=== PATIENT | female | born 2000 | race Two or more races ===

== ENCOUNTER 2024-02-29 16:59 | Observation (INO) | payer MEDICAID, SELFPAY ==
[2024-02-29] VITALS (26 sets, daily range): PULSE 93–111; O2SAT 92–100; BMI 29.9
--- NOTE | 2024-02-29 17:02 | XR_ITS ---
Examination: Complete OB ultrasound greater than 14 weeks Date and time of exam: February 29, 2024 1841 hrs. Indications: Labor evaluation, onset nausea vomiting diarrhea beginning 2 days ago Findings: Viable intrauterine single fetus with single amniotic sac presentation cephalic spine anterior maternal left Cardiac motion 124 BPM Placenta anterior grade 2 Umbilical cord insertion 3 vessel seen Amniotic fluid index 9.6 cm Cervix 4.8 cm Right ovary 4.1 x 1.9 x 2.9 cm arterial flow Left ovary obscured by bowel gas. Composite estimated gestational age based on BPD, head circumference, abdominal circumference, femur length is 33 weeks 2 days Estimated weight 2172.9 g. Survey of intracranial anatomy, spinal anatomy, abdominal anatomy, four-chamber heart performed with no abnormalities identified. Impression: Viable intrauterine gestation cephalic presentation Estimated gestational age 33 weeks 2 days Estimated weight 2172.9 g.
[2024-02-29] MEDS: RINGERS LACTATED 1000 ML 1,000 ML 999 ML IV (17:10)
== END 2024-02-29 20:03 | disposition home or self-care (01) ==
PROVIDERS: Admitting Provider Advanced Practice Midwife; Visit Provider Advanced Practice Midwife
DX: O21.2 Late vomiting of pregnancy (principal); Z3A.33 33 weeks gestation of pregnancy
CPT/HCPCS: 59899; 76805; J7120

== ENCOUNTER 2024-04-18 14:17 | Outpatient (CLI) | payer MEDICAID, SELFPAY ==
--- NOTE | 2024-04-18 14:35 | XR_ITS ---
Examination: Complete OB ultrasound greater than 14 weeks Date and time of exam: April 18, 2024 1441 hours INDICATIONS: Post dates, unknown size and presentation Findings: Viable intrauterine single fetus with single amniotic sac presentation cephalic Cardiac motion 141 BPM Placenta anterior fundal grade 3 Umbilical cord insertion 3 vessel seen Amniotic fluid index 8.1 cm spine maternal left Cervix 3.6 cm Ovaries obscured by bowel gas. Composite estimated gestational age based on BPD, head circumference, abdominal circumference, femur length is 37 weeks 5 days Estimated weight 3324 g. Survey of intracranial anatomy, spinal anatomy, abdominal anatomy, four-chamber heart performed with no abnormalities identified. Impression: Viable intrauterine gestation cephalic presentation Amniotic fluid index 8.1 cm.
[2024-04-18 14:51] VITALS: BP 101/58; PULSE 111; RESP 16; TEMP 36.6
[2024-04-18 15:09] VITALS: BMI 30.5
[2024-04-18 15:38] VITALS: BP 101/58; PULSE 111
[2024-04-18 16:06] VITALS: BP 96/65; PULSE 99
== END 2024-04-18 16:20 | disposition home or self-care (01) ==
LOC: S4S1 14:19 → S4SX 14:20
PROVIDERS: Referring Provider Obstetrics & Gynecology; Visit Provider Obstetrics & Gynecology
DX: Z34.03 Encounter for supervision of normal first pregnancy, third trimester (principal); Z36.9 Encounter for antenatal screening, unspecified; Z3A.37 37 weeks gestation of pregnancy
CPT/HCPCS: 59025; 76805

== ENCOUNTER 2024-04-25 08:19 | Inpatient (IN) | payer MEDICAID, SELFPAY ==
[2024-04-25] VITALS (83 sets, daily range): BP systolic 102–130; BP diastolic 62–81; PULSE 84–121; RESP 16–18; TEMP 36.6–36.7; O2SAT 97–100; BMI 30.4
--- NOTE | 2024-04-25 09:09 | XR_ITS ---
Examination: Complete OB ultrasound greater than 14 weeks Date and time of exam: April 25, 2024 11:51 AM INDICATIONS: Labor induction today, unknown presentation Findings: Viable intrauterine single fetus with single amniotic sac presentation cephalic Cardiac motion 131 BPM Placenta anterior grade 3 Umbilical cord insertion seen Amniotic fluid index 0.3 cm Cervix 3.5 cm Ovaries obscured by bowel gas. Composite estimated gestational age based on BPD, head circumference, abdominal circumference, femur length is 36 weeks 4 days Estimated weight 3043 g. Survey of intracranial anatomy, spinal anatomy, abdominal anatomy, four-chamber heart performed with no abnormalities identified. Impression: Viable intrauterine gestation cephalic presentation.
[2024-04-25 10:18] LABS: Basophils # (Auto) 0.1 Thou/mm3 (0.0-0.2); Basophils % (Auto) 0 % (0-2.5); Eosinophils # (Auto) 0.1 Thou/mm3 (0.0-0.5); Eosinophils % (Auto) 1 % (0-10); Hematocrit 32.7 % (36.0-46.0); Hemoglobin 10.3 g/dL (12.0-16.0); Immature Granulocytes % (Auto) 0 % (0-0); Immature Granulocytes Auto 0.03 Thou/mm3 (0.00-0.00); Lymphocytes # (Auto) 2.4 Thou/mm3 (1.0-4.8); Lymphocytes % (Auto) 22 % (10-50); Mean Corpuscular HGB Conc 31.5 g/dl (31.0-37.0); Mean Corpuscular Hemoglobin 22.2 pg (25.0-35.0); Mean Corpuscular Volume 71 fL (80-100); Monocytes # (Auto) 0.6 Thou/mm3 (0.0-0.8); Monocytes % (Auto) 5 % (0-12); Neutrophils # (Auto) 8.1 Thou/mm3 (1.8-7.7); Neutrophils % (Auto) 72 % (37-80); Nucleated Red Blood Cell % 0 /100 WBC (0); Platelet Count 375 Thou/mm3 (140-440); RDW Standard Deviation 41.4 fL (36.4-46.3); Red Blood Count 4.63 Miln/mm3 (4.00-5.20); White Blood Count 11.3 Thou/mm3 (3.6-11.0)
[2024-04-25 10:56] LABS: Syphilis Nonreactive (Nonreactive)
--- NOTE | 2024-04-25 13:14 | ESHP_ITS ---
Documentation for date of: 04/25/24 OB Labor/Induct. HPI History of Present Illness Chief complaint: labor : 1 Para: 0 Term pregnancies: 0 pregnancies: 0 Living children: 0 History of Abortions: Spontaneous and Elective: 0 History of Vaginal deliveries: 0 History of sections: No History of : No Date of last menstrual period: 07/12/23 YAYA: 04/18/24 Gestational Age (weeks): 41 Gestational Age (days): 1 Gestational age based on last menstrual period: 41 Indication for induction: other (post dates) History of present illness: 24-year-old 1 para 0 admit for induction of labor. Last. 07/12/2023. Estimated due date April 17, 2024. Patient is patient at [facility] she was a transfer of care from Dr. Arriola's office. At 24 weeks. Denies social habits. Denies surgery. Denies chronic illness. History of chlamydia with the elevated test of cure was negative. Partner was treated. A+, antibody screen negative, RPR nonreactive, rubella immune, hepatitis B negative, HIV negative, hep C negative, hep B negative, normal 1 hour. And NIPT was negative and carrier screen negative as well. GBS positive History of Present Dating criteria: LMP confirmed by 2nd trimester US Adequate Care: Yes Ultrasounds: normal 1st trimester US and normal mid trimester US Obstetrical complications: none Medical complications: none Labs Labs: Positive: Group Beta Strep and Negative: Hepatitis B, HIV, Chlamydia and Gonorrhea Review of Systems Review of Systems Systems Reviewed: All systems reviewed, normal except as documented Past Medical History Surgical History SURGICAL: Negative Section Meds Home Medications and Allergies Home Medications ?Medication ?Instructions ?Recorded ?Confirmed ?Type vitamin-ferrous sulfate 1 tab PO QDAY 4 04/25/24 History 27 mg iron-folic acid 0.8 mg tablet Allergies Allergy/AdvReac Type Severity Reaction Status Date / Time No Known Allergies Allergy Verified 04/25/24 08:48 OB Exam Physical Exam Vital signs: Temp Pulse Resp BP Pulse Ox 98.1 F 92 16 119/75 99 04/25/24 08:26 04/25/24 11:43 04/25/24 08:26 04/25/24 11:43 04/25/24 13:11 Narrative: Alert and oriented. Normal heart rate and rhythm. Lungs clear no wheezes. Gravid abdomen. Gynecoid pelvis. Estimated weight 7 pounds 9 ounces. Vaginal exam on admission was long closed posterior high. Vertex by ultrasound. heart rate category 1 with accelerations and moderate variability occasional contraction OB Results Labs 04/25/24 08:40 Labs: Short CBC 04/25/24 Range/Units 08:40 WBC 11.3 H (3.6-11.0) Thou/mm3 Hgb 10.3 L (12.0-16.0) g/dL Hct 32.7 L (36.0-46.0) % Plt Count 375 (140-440) Thou/mm3 Impressions Impression: induction OB Assessment & Plan Assessment and Plan (1) Normal labor and delivery: Status: Acute Additional Plan Induction method: per misoprostol protocol Plan: induction, anticipate NVD, GBS prophylaxis tx and consult MD espinoza
[2024-04-25] MEDS: DINOPROSTONE 10 MG VAG.SUPP VAGINAL (16:54)
[2024-04-25] MEDS: RINGERS LACTATED 1000 ML 1,000 ML 125 ML IV (18:34)
[2024-04-25] MEDS: MEPERIDINE INJ 50 MG/ML VIAL IVP (23:12)
[2024-04-25] MEDS: PROMETHAZINE INJ 25 MG/ML VIAL 12.5 MG IM (23:12)
[2024-04-26] VITALS (208 sets, daily range): BP systolic 69–135; BP diastolic 4–85; PULSE 69–148; RESP 15–23; TEMP 36.8–37.1; O2SAT 78–100
[2024-04-26] MEDS: MISOPROSTOL 50 mCg TABLET PO (11:22)
[2024-04-26] MEDS: RINGERS LACTATED 1000 ML 1,000 ML 125 ML IV (16:03)
--- NOTE | 2024-04-26 17:12 | PD.LDPN ---
Documentation for date of: 04/26/24 OB Labor Progress Note Pain Control Pain control: tolerating well and epidural Pelvic Exam Dilation (cm): 3-4 Effacement (%): 70 station: -2 Amniotic membrane status: Ruptured Comments: IUPC placed Contractions Monitor mode: Internal Contraction frequency: q 5-7 min Contraction intensity: Mild Status status: Category l Assessment and Plan Assessment: induction ongoing Plan OB labor note: begin Pitocin augmentation Comments: IUPC placed clear fluid noted patient on ampicillin for positive GBBS. Status post Cervidil x 1 at 338 and Cytotec at 1123 contractions have now spaced will start Pitocin augmentation. Patient resting comfortably with epidural
[2024-04-26] MEDS: OXYTOCIN in NS 30 units 30 UNIT/500 ML BAG IV (17:28)
[2024-04-26] MEDS: SODIUM CHLORIDE 0.9% 1000 ML 1,000 ML 125 ML IV (19:32)
[2024-04-26] MEDS: Ampicillin Inj 2,000 MG in SODIUM CHLORIDE 0.9% (P) 100 ML 200 MG IV (19:32)
[2024-04-26] MEDS: ONDANSETRON INJ 2 MG/ML INJ 2 ML 4 MG IV (21:01)
[2024-04-26] MEDS: AZITHROMYCIN 250 MG TABLET 500 MG PO (21:19)
[2024-04-26] MEDS: CITRIC ACID/SODIUM CITR 15 ML UDC (BICITRA) 30 ML PO (21:20)
[2024-04-26] MEDS: FAMOTIDINE INJ 10 MG/ML VIAL 2 ML 20 MG IV (21:21)
[2024-04-26] MEDS: ceFAZolin/D5W 2 GM IV 2 GM/100 ML BAG IV (21:23)
--- NOTE | 2024-04-26 22:50 | ESOP_ITS ---
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 Intrauterine at 41-2/7 weeks 2. Arrest of dilation at 3 to 4 cm Post-Op diagnosis: Same Procedure description: The patient is a 24-year-old G1, P0 admitted by Shae Dickey 04/25/24 for a scheduled induction of labor at 41 1/7 weeks for post due dates. The patient had Cervidil placed x 1 and Cytotec placed. She had an amniotomy performed. The patient failed to make progress past 3 to 4 cm for greater than 6 hours and a primary was called. After obtaining informed consent, the patient was brought back to the operating room and her epidural catheter was removed. Spinal anesthesia was then performed. The patient was then prepped and draped in the dorsal supine position with a leftward tilt in a normal sterile fashion. A Antoine catheter had been inserted during the patient's labor. A Pfannenstiel skin incision was made with the scalpel and carried down to the underlying fasc ia. The fascia was incised in the midline with the scalpel and the fascial incision extended laterally using Villasenor scissors. The superior aspect of the fascia was grasped with Sly clamps and the underlying rectus muscles dissected off using blunt and sharp dissection. This was repeated in the inferior aspect of the incision. The rectus muscles were in the midline the peritoneum was picked up and entered sharply with Metzenbaums. Thiis was extended superiorly and inferiorly with good visualization of the bladder. The bladder blade was inserted and the uterus was incised in a low transverse fashion above the bladder reflection using a scalpel. The uterine incision was extended laterally using blunt dissection with the surgeon's fingers. The bag of putnam were ruptured and clear fluid was noted.The bladder blade was removed and the was delivered atraumatically.The cord was clamped and cut and the infant was handed off to the waiting pediatric staff. Cord blood was collected Cord gases were saved. The placenta was then manually removed and handed off the operating field. The uterus was exteriorized and cleared of all clots and debris. The uterine incision was repaired using 1-0 Monocryl in a running locked fashion. Excellent hemostasis was noted. The uterus was returned to the patient's abdominal cavity and copious irrigation carried out with warm normal saline. The uterine incision was reexamined and noted to be hemostatic. After ensuring the rectus muscles were hemostatic, these were reapproximated using a running suture of 1-0 Monocryl. The fascia was closed with 0 Vicryl in a running fashion. The subcutaneous tissues were irrigated and found to be hemostatic. These were reapproximated using a running suture of 3-0 plain. The skin was closed with a subcuticular suture of 4-0 Monocryl. The patient tolerated the procedure well, sponge lap and needle counts were correct x 2. The patient went to the recovery area awake and in stable condition. Fluid amount (mL): 1,000 Urine output (mL): 150 Specimen: none Implants: none Estimated blood loss (ml): 300 Findings: Liveborn female in the OT presentation with a loose nuchal cord x 1 and a body cord x 1 no meconium. Apgars were 8 and 9 weight was 3,305gm. Tubes uterus and ovaries were grossly normal. The placenta was spontaneous and grossly normal with a normal cord insertion and a three-vessel cord. Complications: none Surgical staff Operation Date: 04/26/24 22:00 <No data on this case meets the specified criteria> Diagnosis Discharge Diagnosis (1) Post-dates : Status: Acute (2) delivery delivered: Status: Acute Problem List Completed Was Problem List Reviewed/Reconciled?: Yes (1) Post-dates Qualifiers: Post-term type: 40-42 weeks gestation Qualified Code(s): O48.0 - Post-term
[2024-04-26] MEDS: ACETAMINOPHEN IVPB 1,000 MG/100 ML VIAL 250 MG IV (23:12)
[2024-04-26] MEDS: OXYTOCIN in NS 20 units 20 UNIT/1,000 ML BAG 125 UNIT IV (23:13)
[2024-04-27] VITALS (8 sets, daily range): BP systolic 97–113; BP diastolic 59–71; PULSE 84–106; RESP 15–19; TEMP 36.5–36.7; O2SAT 96–100
[2024-04-27] MEDS: KETOROLAC INJ 30 MG/ML VIAL IVP ×3 (06:10→18:05)
[2024-04-27] MEDS: ACETAMINOPHEN IVPB 1,000 MG/100 ML VIAL 250 MG IV ×2 (06:12→16:18)
[2024-04-27] MEDS: PRENATAL VITAMIN/FE FUM/FA TABLET 1 TAB PO (08:32)
--- NOTE | 2024-04-27 09:15 | PD.LDPPPRG ---
Subjective Subjective Interval history: Patient doing well overall. Pain is controlled. She stood at bedside once, hasn't really ambulated yet- didn't have lightheadedness. Marvin in place draining clear yellow urine. Tolerating regular diet without nausea/vomiting. No fevers/chills, no CP/SOB. Exam Vital Signs Temp Pulse Resp BP Pulse Ox O2 Del Method 98.1 F 90 19 97/60 97 Room Air 04/27/24 08:00 04/27/24 08:00 04/27/24 08:00 04/27/24 08:00 04/27/24 08:00 04/27/24 08:00 Narrative Exam General: well developed, well nourished, no acute distress, conversant Cardiac: normal heart rate Lungs: breathing without distress Abdomen: soft, post-gravid, non-tender, no rebound or guarding, pfannenstiel incision covered by dry/clean/intact pressure dressing. No strike-through. Fundus firm at u-2cm. Extremities: no pain with palpation of calves, trace edema of BLE Objective Labs 04/25/24 08:40 Assessment & Plan Problem List (1) delivery delivered: Status: Acute Assessment and plan: Denice is a 24yo [id number] s/p uncomplicated PLTCS for arrest of dilation when undergoing IOL for post-dates, doing well on POD 1. Vitals wnl, benign exam. Hemodynamically stable with no evidence of infection. Plan: -Continue routine /post-op care -AM CBC ordered -Remove marvin this morning with 6hr due to void -Regular diet -Toradol for 24hr then motrin 800mg PO Q8hr, norco 5/325mg PO Q6hr prn pain -Encourage ambulation and use of IS -Anticipate discharge home tomorrow if meeting all milestones (2) Post-dates : Status: Acute Time Spent With Patient Time: Total time spent is greater than 50% in coordination of care (as documented) at patient's floor/unit and/or counseling patient:
[2024-04-27] MEDS: RINGERS LACTATED 1000 ML 1,000 ML 125 ML IV (09:18)
[2024-04-27 10:13] LABS: Basophils # (Auto) 0.1 Thou/mm3 (0.0-0.2); Basophils % (Auto) 0 % (0-2.5); Eosinophils % (Auto) 0 % (0-10); Hematocrit 25.8 % (36.0-46.0); Immature Granulocytes % (Auto) 1 % (0-0); Lymphocytes # (Auto) 2.5 Thou/mm3 (1.0-4.8); Lymphocytes % (Auto) 11 % (10-50); Mean Corpuscular Hemoglobin 21.8 pg (25.0-35.0); Mean Corpuscular Volume 70 fL (80-100); Monocytes # (Auto) 0.8 Thou/mm3 (0.0-0.8); Monocytes % (Auto) 4 % (0-12); Neutrophils # (Auto) 18.6 Thou/mm3 (1.8-7.7); Neutrophils % (Auto) 84 % (37-80); Nucleated Red Blood Cell % 0 /100 WBC (0); Platelet Count 264 Thou/mm3 (140-440); RDW Standard Deviation 42.1 fL (36.4-46.3); Red Blood Count 3.67 Miln/mm3 (4.00-5.20); White Blood Count 22.2 Thou/mm3 (3.6-11.0)
--- NOTE | 2024-04-27 11:02 | PC.NURSE ---
MD called and updated with cbc results, no new orders.
[2024-04-27] MEDS: IBUPROFEN TAB 400 MG TABLET 800 MG PO (21:38)
[2024-04-27] MEDS: ACETAMINOPHEN 325 MG TABLET 650 MG PO (22:03)
[2024-04-28 04:00] VITALS: BP 113/75; PULSE 86; RESP 16; TEMP 36.7; O2SAT 97
[2024-04-28] MEDS: ACETAMINOPHEN 325 MG TABLET 650 MG PO ×2 (06:07→12:04)
[2024-04-28] MEDS: IBUPROFEN TAB 400 MG TABLET 800 MG PO (06:09)
[2024-04-28 08:00] VITALS: BP 104/67; PULSE 88; RESP 17; TEMP 36.7; O2SAT 97
[2024-04-28] MEDS: PRENATAL VITAMIN/FE FUM/FA TABLET 1 TAB PO (08:39)
--- NOTE | 2024-04-28 11:54 | ESDS_ITS ---
DS: Providers Provider Date of admission: 04/25/24 08:19 Primary care physician: Physician No Primary/Family Admitting Provider: Freddy Alvarenga MD Attending Provider on Admission: Shae Dickey CNM Attending Provider on DC: Arabella Thakkar MD Discharging Provider: Arabella Thakkar MD DS: Diagnosis Discharge Diagnosis (1) delivery delivered: Status: Acute (2) Post-dates : Status: Acute (3) Anemia, : Status: Acute Problem List Completed Was Problem List Reviewed/Reconciled?: Yes Summary/Hosp Course Brief History: Denice is a 24yo [id number] s/p uncomplicated PLTCS for arrest of dilation when undergoing IOL for post-dates, doing well on POD 2. Vitals wnl, benign exam. Hemodynamically stable with no evidence of infection. She has had a benign post- operative course and is meeting all milestones. Post-op Hgb 8, Rx iron to pharmacy. Peripartum Data Procedures: Procedures Operation Date: 04/26/24 22:00 Actual Procedure Side Surgeon p in OB Kenia Eid MD Status at Discharge Functional status at discharge: independent ambulation Overall status at discharge: patient is back to baseline Time Spent with Patient Time attestation: Total time spent providing and/or coordinating discharge services: Exam Vital Signs Temp Pulse Resp BP Pulse Ox O2 Del Method 98.1 F 88 17 104/67 97 Room Air 04/28/24 08:00 04/28/24 08:00 04/28/24 08:00 04/28/24 08:00 04/28/24 08:00 04/28/24 08:00 Narrative Exam General: well developed, well nourished, no acute distress, conversant Cardiac: normal heart rate Lungs: breathing without distress Abdomen: soft, post-gravid, non-tender, no rebound or guarding, pfannenstiel incision covered by dry/clean/intact prineo bandage. Incision well reapproximated. No erythema, drainage or induration. Fundus firm at u-2cm. Extremities: no pain with palpation of calves, trace edema of BLE Discharge Plan Plan Patient Disposition: HOME (Self Care) Patient condition on transfer: Stable Prescriptions/Referrals Prescriptions/Med Rec: New ibuprofen 800 mg tablet 800 mg PO Q8HR 10 Days Qty: 30 0RF polyethylene glycol 3350 17 gram powder in packet 17 g PO QDAY Qty: 14 0RF hydrocodone-acetaminophen 5-325 mg tablet 1 tab PO Q6H MDD 4 tablets PRN (Reason: pain) Qty: 12 0RF ferrous sulfate 325 mg (65 mg iron) tablet 325 mg PO QDAY Qty: 30 0RF Continued vit-ferrous sulfat-FA 27 mg iron- 0.8 mg Tablet 1 tab PO QDAY Referrals: No Primary/Family,Physician [Primary Care Provider] - Patient/Caregiver Discharge Instructions Discharge Activity: activity as tolerated and other Other Discharge Activity Instructions:: Vaginal rest and no heavy lifting more than 10 pounds for 6 weeks[address] No [address] while taking narcotic. Do not submerge incision, keep dressing clean and dry. Other Discharge Diet Instructions: Regular Education Materials: C Section Dc Print Language: Indonesian Activity Restrictions/Additional Instructions: follow up for incision check with OBGYN in 1 week, call for appointment Stand Alone Forms: [employer] Info., Patient Portal Info Letter Discharge Order Discharge Orders: Discharge (Routine); Ordered 04/28/24 Ordered By: Arabella Thakkar Planned Discharge Date 04/28/24 (2) Post-dates Qualifiers: Post-term type: 40-42 weeks gestation Qualified Code(s): O48.0 - Post-term
== END 2024-04-28 13:15 | disposition home or self-care (01) | DRG 540 ==
LOC: S4SX 04-26 21:04 → S4NX 04-26 21:27
PROVIDERS: Obstetrics & Gynecology; Admitting Provider Student in an Organized Health Care Education/Training Program; Visit Provider Advanced Practice Midwife
PROC: (CPT 59514; principal; 2024-04-26 21:45)
DX: O48.0 Post-term pregnancy (principal); O99.824 Streptococcus B carrier state complicating childbirth; Z37.0 Single live birth; Z3A.41 41 weeks gestation of pregnancy; O69.81X0 Labor and delivery complicated by cord around neck, without compression, not applicable or unspecified; O62.0 Primary inadequate contractions; O69.82X0 Labor and delivery complicated by other cord entanglement, without compression, not applicable or unspecified; O90.81 Anemia of the puerperium
CPT/HCPCS: 36415; 76805; 85025; 86780; 86850; 86900; 86901; 94762; J0131; J0290; J0689; J1885; J2175; J2274; J2371; J2405; J2550; J2590; J2795; J3010; J3490; J7030; J7120; A9270; J2270